=== PATIENT | male | born 1995 | race Caucasian/White ===

== ENCOUNTER 2019-07-11 10:53 | Emergency (ER) | payer MEDICAID ==
[~2019-07-11] VITALS: Ht 172.7 cm; Wt 70.6 kg
[~2019-07-11 10:53] MED LIST: NAPR-985 PO
[2019-07-11 10:58] VITALS: BP 154/80; PULSE 92; RESP 18; Ht 172.7 cm; Wt 70.6 kg
[2019-07-11] MEDS ORDERED: NAPROXEN 500 MG TAB PO ONE (11:30)
== END 2019-07-11 11:50 | disposition home or self-care (01) ==
LOC: FTE 10:53
DX: S86.912A Strain of unspecified muscle(s) and tendon(s) at lower leg level, left leg, initial encounter (principal); V13.4XXA Pedal cycle driver injured in collision with car, pick-up truck or van in traffic accident, initial encounter
CPT/HCPCS: Z7502; Z7610; 99282